=== PATIENT | female | born 1945 | race Caucasian/White ===

== ENCOUNTER 2020-11-04 20:24 | Outpatient (REF) | payer OTHER, SELFPAY ==
[2020-11-04 21:00] LABS: Abs Immature Grans 0.04 10^3/uL (0.0-0.06); Absolute Basophil Count 0.04 10^3/uL (0.0-0.2); Absolute Eosinophil Count 0.23 10^3/uL (0.0-0.7); Absolute Lymphocyte Count 1.64 10^3/uL (1.2-3.4); Absolute Monocyte Count 0.62 10^3/uL (0.1-0.8); Absolute Neutrophil Count 7.22 10^3/uL (1.2-6.7); Basophils % 0.4; Eosinophils % 2.3; HCT 30.7 % (36.0-46.0); HGB 9.4 g/dL (11.2-15.7); Immature Grans % 0.4; Lymphocytes % 16.8; MCH 29.1 pg (27.0-33.0); MCHC 30.6 % (32.0-36.0); MPV 11.3 fL (8.0-11.0); Monocytes % 6.3; Neutrophils % 73.8; Nucleated RBC 0 %; Platelet Count 172 10^3/uL (130-400); RBC 3.23 10^6/uL (3.93-5.22); RDW 14.1 % (11.7-14.6); RDW-SD 49.1 fL; WBC 9.79 10^3/uL (4.4-10.8)
[2020-11-04 21:33] LABS: COMMENT (LAB VIEW ONLY) 37.32 mg/dL
[2020-11-04 21:59] LABS: ALT 28 U/L (14-59); AST 30 U/L (15-37); Albumin 3.2 g/dL (3.4-5.0); Alkaline Phosphatase 87 U/L (46-116); Anion Gap 6.1 mmol/L (3-11); BUN 58 mg/dL (7-18); Bilirubin, Total 0.3 mg/dL (0.2-1.0); CO2 31.9 mmol/L (21.0-32.0); Calcium 9.3 mg/dL (8.5-10.1); Chloride 102 mmol/L (98-107); Estimated GFR 24.36 (mL/min/1.73m2); Ferritin 259 ng/mL (8-252); Glucose 158 mg/dL (74-106); Potassium 4.8 mmol/L (3.5-5.1); Sodium 140 mmol/L (136-145); Total Protein 7.5 g/dL (6.4-8.2)
[2020-11-08 10:21] LABS: Transferrin 181 mg/dL (201-352)
[2020-11-08 12:25] LABS: Erythropoietin 9.4 mIU/mL (2.6 - 18.5)
== END 2020-11-04 20:25 | disposition home or self-care (01) ==
LOC: LBN 20:24
PROVIDERS: Visit Provider Family Medicine
DX: I11.0 Hypertensive heart disease with heart failure (principal); I50.33 Acute on chronic diastolic (congestive) heart failure; E11.22 Type 2 diabetes mellitus with diabetic chronic kidney disease; N18.30 Chronic kidney disease, stage 3 unspecified
CPT/HCPCS: 80053; 82668; 82043; 82570; 82728; 83036; 84466; 85025

== ENCOUNTER 2021-04-29 16:58 | Outpatient (REF) | payer MEDICARE, SELFPAY ==
[2021-05-01 15:26] LABS: COVID-19 RT-PCR UVMMC Result Negative (Negative)
== END 2021-04-29 16:59 | disposition home or self-care (01) ==
LOC: NCHCN 16:58
PROVIDERS: Visit Provider Registered Nurse
DX: Z20.822 Contact with and (suspected) exposure to COVID-19 (principal)
CPT/HCPCS: U0003